=== PATIENT | female | born 1955 | race Caucasian/White ===

== ENCOUNTER 2017-01-05 22:40 | Observation (INO) | payer BC ==
[2017-01-05] MEDS ORDERED: Ondansetron INJ* 2 MG/ML VIAL IV ONE (23:36)
[2017-01-05] MEDS ORDERED: NS 0.9% 1000 ML* 1,000 ML IV ONE (23:36)
[2017-01-05] MEDS ORDERED: Morphine INJ* 4 MG/ML 1 ML SYRINGE IV ONE (23:47)
--- NOTE | 2017-01-06 00:06 | ED ---
Abdominal Pain/Female - HPI Summary HPI Summary: Pt here w/ upper ab pain. 5/10 at best, 10/10 at worst. Noticed some discomfort this morning after drinking a protein shake but didn't think much of it. Had a smaller than normal BM this morning but again, not noticeable. Went to work and was eating light throughout the day as well as drinking water - seemed to tolerate this well until dinner tonight. Ate spaghetti and meatballs at 18:30 and has had worsening of pain since. Comes in waves and ab gets hard at times. She vomited up her dinner which helped some and has significant nausea. Still passing gas below and denies watery BM. Denies fever, chills, chest pain, shortness of breath. H/o bowel obstruction and is worried this could be happening again although she states the pain is higher this time. Has had NIRMALA and appendectomy but still has gallbladder. Pt also has GERD. Takes zantac and Tums as needed. Denies routine use of NSAID' s. - History of Current Complaint Chief Complaint: EDAbdPain Stated Complaint: ABD PAIN Time Seen by Provider: 01/05/17 23:35 Hx Obtained From: Patient Pain Intensity: 5 Allergies/Adverse Reactions: Allergies Allergy/AdvReac Type Severity Reaction Status Date / Time Penicillins [PCN] Allergy Unknown childhood Verified 10/26/13 22:01 allergy PMH/Surg Hx/FS Hx/Imm Hx Previously Healthy: Yes GI History: Reports: Hx Gastroesophageal Reflux Disease, Hx Obstructive Bowel - PARTIAL SBO 2011, Other GI Disorders - GERD, HX PARTIAL SBO 2011 Denies: Hx Cirrhosis, Hx Diverticulosis, Hx Gall Bladder Disease, Hx Gastrointestinal Bleed, Hx Hiatal Hernia, Hx Irritable Bowel, Hx Ulcer - Surgical History Surgery Procedure, Year, and Place: OPEN APPENDECTOMY Infectious Disease History: No Infectious Disease History: Denies: Traveled Outside the [place] in Last 30 Days - Social History 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 Lives: With Family Hx Substance Use: No Substance Use Type: Reports: None Review of Systems Negative: Fever, Chills Negative: Chest Pain Negative: Shortness Of Breath Gastrointestinal: Other - see HPI Positive: no symptoms reported Musculoskeletal: Negative Skin: Negative Neurological: Negative Psychological: Normal All Other Systems Reviewed And Are Negative: Yes Physical Exam Triage Information Reviewed: Yes Vital Signs On Initial Exam: Initial Vitals Temp Pulse Resp BP Pulse Ox 98.0 F 81 20 143/73 100 01/05/17 22:41 01/05/17 22:41 01/05/17 22:41 01/05/17 22:41 01/05/17 22:41 Vital Signs Reviewed: Yes Appearance: Positive: Well-Appearing, Well-Nourished, Pain Distress - pt leaning forward in waiting room, holding upper abdomen; Skin: Positive: Warm, Dry Head/Face: Positive: Normal Head/Face Inspection Eyes: Positive: Normal, EOMI, Conjunctiva Clear - anicteric sclera ENT: Positive: Hearing grossly normal Respiratory/Lung Sounds: Positive: Clear to Auscultation, Breath Sounds Present Cardiovascular: Positive: Normal, RRR, S1, S2 Abdomen Description: Positive: Nontender, Distended - mild over upper abdomen, Guarding Bowel Sounds: Positive: Present, Hypoactive Pelvic Exam: Positive: other - deferred Musculoskeletal: Positive: Normal, Strength/ROM Intact Neurological: Positive: Normal, Sensory/Motor Intact, Alert, Oriented to Person Place, Time, CN Intact II-III Psychiatric: Positive: Normal - concerned Diagnostics - Vital Signs Vital Signs Temp Pulse Resp BP Pulse Ox 01/05/17 22:41 98.0 F 81 20 143/73 100 - Laboratory Result Diagrams: 01/06/17 00:05 01/06/17 00:05 Lab Statement: Any lab studies that have been ordered have been reviewed, and results considered in the medical decision making process. Re-Evaluation - Re-Evaluation First Eval Change: Improved - nausea improved; ab pain is 4/10 at baseline (was 5/10) and waves are still 10/10 but less frequent and don't last as long - would like more pain med Second Eval Change: Worse - pain worse, vomiting returned (witnessed) - ordered dilaudid and reglan Abdominal Pain Fem Course/Dx - Diagnoses Provider Diagnoses: Small bowel obstruction - Provider Notifications Discussed Care Of Patient With: Pt presents w/ painful hard upper abdomen and vomiting. Pain is coming in waves. H/o SBO and she is concerned about the same. CT reveals SBO w/o abscess or free air. Labs WNL. Spoke with Dr. Negro who advises NG tube, NPO, IVF and admission. He will see pt tomorrow. Pt aware of plan. Tiffany aware. Discharge - Discharge Plan Condition: Stable Disposition: ADMITTED TO [facility] Referrals: Kaci Rodríguez MD [Primary Care Provider] -
[2017-01-06 00:40] LABS: BUN/Creatinine Ratio 17.9 (8-20); C Reactive Protein 5.85 mg/L (< 5.00); Calcium 9.4 mg/dL (8.6-10.3); EGFR African American 77.2 (>60); Globulin 2.9 g/dL (2-4); Potassium 3.9 mmol/L (3.5-5.0); Total Bilirubin 0.6 mg/dL (0.2-1.0); Total Protein 6.9 g/dL (6.4-8.9)
[2017-01-06] MEDS ORDERED: Morphine INJ* 4 MG/ML 1 ML SYRINGE IV ONE (00:44)
[2017-01-06 00:56] LABS: Hematocrit 45 % (35-47); Mean Corpuscular HGB Conc 34 g/dl (31-36); Mean Corpuscular Hemoglobin 29 pg (27-31); Mean Corpuscular Volume 85 fL (80-97); Mean Platelet Volume 8 um3 (7.4-10.4); Red Blood Count 5.24 10^6/ul (4.0-5.4); Red Cell Distribution Width 14 % (10.5-15); White Blood Count 11.6 10^3/ul (3.5-10.8)
[2017-01-06] MEDS ORDERED: Iohexol 300* (CONTRAST) 10 ML SDV IV ONE (01:22)
[2017-01-06 01:36] LABS: Urine Bilirubin Negative (Negative); Urine Glucose Negative (Negative); Urine Nitrite Negative (Negative)
[2017-01-06] MEDS ORDERED: Metoclopramide IV* 5 MG/ML 2 ML VIAL IV ONE (01:40)
[2017-01-06] MEDS ORDERED: HYDROmorphone* 1 MG/ML 1 ML SYR IV SLOW PU ONE (01:40)
[2017-01-06] MEDS ORDERED: HYDROmorphone* 1 MG/ML 1 ML SYR IV SLOW PU PRN (03:51)
[2017-01-06] MEDS ORDERED: Pantoprazole IV* 40 MG IV SCH (04:00)
[2017-01-06] MEDS ORDERED: NS 0.9% 1000 ML* 1,000 ML IV SCH (04:00)
[2017-01-06] MEDS: Ondansetron INJ* 2 MG/ML VIAL IV PRN ×2 (04:21→07:19)
[2017-01-06] MEDS: Heparin VIAL(*) 5000 UNITS/ML VIAL (FIVE THOUSAND) SUBCUT SCH ×2 (06:19→13:46)
--- NOTE | 2017-01-06 07:59 | RAD ---
Indication: RIGHT upper quadrant pain, vomiting. Comparison: January 06, 2017 CT. Technique: RIGHT upper quadrant ultrasound. Report: Appropriate direction flow documented in the portal and hepatic veins. 20 cm cephalocaudal liver is increased in echogenicity consistent with fatty and duration. No focal hepatic lesions or biliary dilatation evident. Adequately distended gallbladder with normal 2.3 mm wall is without pathologic finding. Negative for sonographic Hua's sign. Upper normal 6.0 mm common bile duct. The pancreatic tail is largely obscured due to bowel gas with the visualized pancreas unremarkable. Negative for ascites. Unremarkable 10.9 cm RIGHT kidney. IMPRESSION: 1. Mild hepatomegaly and fatty infiltration of the liver. 2. Negative for gallbladder pathology.
--- NOTE | 2017-01-06 09:48 | RAD ---
Indication: Abdominal pain, history of bowel obstruction. Contrast: Administered 117.0 ml of OMNIPAQUE 300 mg/ml CT of the abdomen and pelvis was performed after IV contrast administration. Oral contrast was also administered. The lung bases demonstrate no pleural fluid, nodules or masses. Heart is of normal size without evidence of pericardial effusion. The liver is normal in size. It is diffusely decreased in density consistent with hepatic steatosis. No focal lesions or intrahepatic duct dilatation is noted. The gallbladder demonstrates no calcified gallstones. No pericholecystic fluid or wall thickening is identified. The spleen is normal in size. No adrenal lesions are noted. The kidneys demonstrates no mass or pancreatic duct dilatation. Aorta and inferior vena cava are unremarkable. There are dilated loops of small bowel. There is a zone of transition in the right pelvis in the mid to distal ileum. There is focal wall thickening noted. This is just adjacent and to the right of the dome of the urinary bladder. Focal wall thickening is noted and the possibility of a neoplastic process should be considered. I cannot totally exclude an apple core type lesion. There is some fluid in the colon. No retroperitoneal or pelvic lymphadenopathy is noted. No hernias are identified. IMPRESSION: Findings consistent with small bowel obstruction. There is focal wall thickening of the mid to distal ileum in the right lower quadrant just above the URINARY bladder. I cannot totally exclude a neoplastic process, although inflammatory bowel disease should also be considered. Hepatic steatosis is noted.
--- NOTE | 2017-01-06 10:43 | PN ---
Progress Note - Progress Note SOAP: Subjective: Doing much better this am. Denies pin, N/V. NG already d/c'ed and patient started on clear liquids, tolerating it well. Objective: VSS, afebrile. Abdomen soft, NT, ND Assessment: Resolving intermittent SBO Plan: Ambulate, continue liquid diet, possibly d/c later today.
[2017-01-06 15:16] VITALS: BP 113/69
--- NOTE | 2017-01-06 17:38 | HP ---
HISTORY AND PHYSICAL: DATE OF ADMISSION: 01/06/17 CHIEF COMPLAINT: Abdominal pain. HISTORY OF PRESENT ILLNESS: The patient is a 61-year-old woman who presents to [facility] with chief complaint of abdominal pain. She said the morning it happened, she had a protein shake and was feeling fine, but did not have much to eat rest of the day except the piece of toast. Then at dinner, she had macaroni and meatballs and shortly thereafter she started developing significant abdominal pain. It increased and increased until it was 10/10 severity and she could not take it any longer. She also developed significant nausea and vomiting. She came to the ER and was found to have small bowel obstruction. PAST MEDICAL HISTORY: The patient has a past medical history significant for GERD, NIRMALA-BSO, appendectomy, tonsillectomy, adenoidectomy. MEDICATIONS: Include Zantac 150 mg daily. ALLERGIES: She has an allergy/adverse reaction to PENICILLIN. FAMILY HISTORY: Mother at 63 of cancer of unknown etiology. Father is alive at 84 and has hypertension, hyperlipidemia. SOCIAL HISTORY: No tobacco. Social alcohol. No recreational drug use. 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 She is and her , Andi Guzman, is her healthcare proxy. REVIEW OF SYSTEMS: A 14-point review of systems was completed with the patient. All pertinent positives and negatives are in the history of present illness, otherwise negative. PHYSICAL EXAMINATION GENERAL: A pleasant woman, lying in bed, in no acute distress. VITAL SIGNS: Temperature 97.6 degrees, heart rate 93 beats per minute, respiratory rate 12 breaths per minute, pulse ox 97%, blood pressure 129/77. HEENT: Normocephalic, atraumatic. Pupils equal, round, and reactive to light. Moist mucous membranes. NECK: Supple. No JVD, bruits, palpable thyroid, or lymphadenopathy. CHEST: Clear to auscultation and percussion bilaterally. CARDIOVASCULAR: S1, S2 appreciated. Regular rate and rhythm. ABDOMEN: She has got positive bowel sounds. It is distended, it is tender, but no rebound, no guarding, no rigidity. EXTREMITIES: No cyanosis, clubbing, or edema. +2 peripheral pulses bilaterally. NEURO: Alert and oriented x3. Moves all extremities. SKIN: No rashes or abnormalities. LABORATORY DATA/DIAGNOSTIC STUDIES: White count 11.6, hemoglobin 15.0, hematocrit 45, platelets 185. Sodium 135, potassium 3.9, chloride 104, CO2 27, BUN 17, creatinine is 0.95, glucose level 114. CRP 5.85. Urinalysis is unremarkable. Ultrasound of the gallbladder shows enlarged fatty liver. CT of the abdomen and pelvis shows small bowel obstruction with distal ileal transition point without abscess or free air, fatty liver. ASSESSMENT AND PLAN: 1. Small bowel obstruction. Make patient NPO. Normal saline 100 cc an hour. Zofran p.r.n. for nausea. Dilaudid p.r.n. for pain. Surgery to see this morning. 2. Gastroesophageal reflux disease: Place patient on IV Protonix. 3. FEN. NPO, again with IV fluids. 4. DVT prophylaxis. Heparin subcu. 5. The patient is a full code. TIME SPENT: Over 75 minutes was spent on this H and P, more than 40 minutes of which was spent in direct [id number] contact with the patient on evaluation, physical exam, counseling, and coordination of care. CC: Kaci Rodríguez MD* [id number]/[facility] #: [id number] MARIA ISABEL
--- NOTE | 2017-01-06 18:12 | CONS ---
CONSULTATION REPORT: DATE OF CONSULT: 01/06/17 REFERRING PROVIDER: Dr. James Allen. The patient seen here on short-stay unit, bed 332. REASON FOR CONSULT: Abdominal pain with concern for a small bowel obstruction. HISTORY OF PRESENT ILLNESS: Ms. 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 She has had a normal bowel movement yesterday morning, which was not unusual and in addition, she had passed some flatus. At about 9 o'clock last night, the pain became unbearable. She presented to the emergency room and was noted to have crampy abdominal discomfort and distention. She was afebrile with normal vital signs. She noted to have tenderness throughout her abdomen without rebound, guarding or peritoneal signs, however. Nasogastric tube was inserted last night. Laboratory values include a white blood cell count of 11,000 with no bandemia. Electrolytes, BUN, creatinine and lactic acid were normal. She has a C- reactive protein of 5.85. Lipase was 33. She underwent a CT scan of the abdomen and pelvis. I did review the study. This was read as proximal dilated small bowel with what appears to be some distally smaller caliber terminal ileum. The patient has undergone an appendectomy in the past. There was no other acute findings and this was felt to represent a small bowel obstruction. Nasogastric tube was inserted in the emergency room. She was admitted to hospitalist service and surgical consultation was obtained. PAST MEDICAL HISTORY: Gastroesophageal reflux disease. PAST SURGICAL HISTORY: 1. Open appendectomy. 2. Laparoscopic hysterectomy. ALLERGIES: She is allergic to PENICILLIN. MEDICATIONS: Zantac p.r.n. SOCIAL HISTORY: She does not smoke or drink. She is with grown children. 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 REVIEW OF SYSTEMS: Cerebrovascular: No dizziness or visual disturbances. Cardiovascular: No chest pain or shortness of breath. Pulmonary: No wheezing or hemoptysis. GI: As per above. She has had an admission to the [facility] in 2011, for what it was described as a small bowel obstruction. We do not have these records. In addition, in 2014, she was seen here in the emergency room with similar symptoms , all of these resolved in the ER and she was discharged to home without admission. She also had some mildly dilated small bowel with some less distended distal bowel with perhaps some thickening in the terminal ileal area. She has not had problems since. She states she underwent a colonoscopy in 2014 at the [employer] [facility], which was unremarkable but they did not feel that the terminal ileum was intubated. PHYSICAL EXAM: Temperature 97.6, pulse 93, blood pressure 129/77, respirations 12. In general, she is a well-developed, overweight female, normal attention to grooming. She is quite alert and conversant, appears to be in no apparent distress. She is sitting up in bed and moves around well. Lungs were clear to auscultation with normal respiratory effort. Heart was regular rate and rhythm without murmurs, rubs, or gallops. Abdomen is soft, nondistended. She had normoactive bowel sounds throughout. They were somewhat hyperactive but not high pitched or tinkling. She has a well-healed right lower quadrant oblique incision as well as some laparoscopic incision in lower abdomen. She has no tenderness, rebound, guarding or mass noted. Psychiatric: She is awake, alert , and oriented x3. She has normal judgment and insight. IMPRESSION: Abdominal pain of a crampy nature with severe nausea and vomiting. It subsequently had resolved. She has had no diarrhea. There has been no fever. Laboratory workup as above. She had similar symptoms in 2014, was seen here in the emergency room but discharged without needing admission as her symptoms improved. A CT scan today was reviewed from the study done severe years ago and I am not convinced that there is a clear transition point but there is some relatively collapsed bowel distally that represents a small bowel obstruction. At this point, I am not convinced that she has had a small bowel obstruction, an uncertain etiology but she seems to be doing better. A nasogastric tube has not really drained since it has been inserted and she is feeling much better, which I suspect would be unusual for an adhesive small bowel obstruction to have such a quick resolution. PLAN: 1. Observation with admission. 2. Continue NG tube for the next several hours. If this has not had drained any further and she feels well, we will discontinue this and start liquids as long as she continues to do well with consideration of possible discharge later today if she tolerates this. Thank you very much for this consultation. CC: Kaci Rodríguez MD, [facility] in [place]; [facility]* [id number]/[facility] #: [id number] MTDD
--- NOTE | 2017-01-07 12:33 | DS ---
DISCHARGE SUMMARY: DATE OF ADMISSION: 01/06/17 DATE OF DISCHARGE: 01/06/17 PRIMARY CARE PROVIDER: Dr. Rodríguez. DISCHARGE DIAGNOSIS: Mild episode of small bowel obstruction. MEDICATIONS: None. HOSPITAL COURSE: Ms. Guzman is a 61-year-old lady with a prior episode of SBO, who presents to the emergency room with complaints of abdominal pain and found to have CT findings suggesting another episode. She had a NG tube placed that did not drain a lot and she had significant symptomatic improvement. She was able to tolerate a liquid diet. She was seen in consultation by General Surgery and it was felt that her case was mild and she was already improving, so the plan was to advance her diet and to discharge her home today. She has tolerated liquids well and she has had an episode of SBO in the past, so she is aware of the need for low-residue diet. She is medically stable for discharge at this time. STATUS WHILE IN THE HOSPITAL: Observation. DIET: Full liquid diet for 2 days, then low-residue diet for 2 weeks. DISPOSITION: To home. If you need more information, please feel free to call me at [phone] or please obtain the full medical records. Please keep in mind this is a summarized version of this patient's hospital stay. CC: Dr. Rodríguez * [id number]/[facility] #: [id number] MARIA ISABEL
== END 2017-01-06 16:05 | disposition home or self-care (01) ==
LOC: ED 22:40 → INTOOBSV 01-06 04:02 → SSU 01-06 04:02 → UNDODISIN 01-06 16:05
PROVIDERS: ADMIT Internal Medicine; ATTEND Internal Medicine
DX: K56.60 Unspecified intestinal obstruction (principal); K21.9 Gastro-esophageal reflux disease without esophagitis; R16.2 Hepatomegaly with splenomegaly, not elsewhere classified; K76.0 Fatty (change of) liver, not elsewhere classified; Z88.0 Allergy status to penicillin
CPT/HCPCS: 36415; 74177; 76705; 80053; 81003; 83605; 83690; 85025; 86140; 96361; 96372; 96374; 96375; 96376; 99285; G0378; J1170; J1644; J2270; J2405; Q9967

== ENCOUNTER 2017-01-07 03:34 | Inpatient (IN) | payer BC ==
[2017-01-07] MEDS ORDERED: Ondansetron INJ* 2 MG/ML VIAL IV ONE ×2 (03:50→07:26)
[2017-01-07] MEDS ORDERED: Morphine INJ* 2 MG/ML 1 ML SYRINGE IV ONE (03:50)
[2017-01-07] MEDS ORDERED: NS 0.9% 1000 ML* 1,000 ML IV ONE (03:50)
[2017-01-07 04:40] LABS: Hematocrit 46 % (35-47); Hemoglobin 15.4 g/dl (12.0-16.0); Mean Corpuscular HGB Conc 33 g/dl (31-36); Mean Corpuscular Hemoglobin 28 pg (27-31); Mean Corpuscular Volume 85 fL (80-97); Mean Platelet Volume 8 um3 (7.4-10.4); Red Blood Count 5.48 10^6/ul (4.0-5.4); Red Cell Distribution Width 14 % (10.5-15); White Blood Count 9.1 10^3/ul (3.5-10.8)
[2017-01-07 04:55] LABS: Albumin 3.9 g/dL (3.2-5.2); BUN/Creatinine Ratio 14.3 (8-20); C Reactive Protein 29.03 mg/L (< 5.00); Calcium 8.8 mg/dL (8.6-10.3); EGFR African American 98.3 (>60); EGFR Non-African American 76.5 (>60); Globulin 2.7 g/dL (2-4); Magnesium 2.1 mg/dL (1.9-2.7); Potassium 3.6 mmol/L (3.5-5.0); Total Bilirubin 0.9 mg/dL (0.2-1.0); Total Protein 6.6 g/dL (6.4-8.9)
--- NOTE | 2017-01-07 06:27 | ED ---
Bennie Justin Salem, scribed for West Banda MD on 01/07/17 at 0357 . Abdominal Pain/Female - HPI Summary HPI Summary: Patient is a 61 y/o female who presents to the ED with constant 7/10 abd pain that waxes and wanes. She was in the ED yesterday with upper abd pain, vomiting , and nausea, but denied SOB, CP, chills, or fever. She reports SOB as a new sx since yesterday. Pt has a hx of bowel obstruction and of SOB. She reports no other sx. - History of Current Complaint Chief Complaint: EDAbdPain Stated Complaint: POSS SBO Time Seen by Provider: 01/07/17 03:37 Hx Obtained From: Patient, Family/Infrastructure Tech, Medical Records Onset/Duration: Gradual Onset, Lasting Hours Timing: Constant Severity Initially: Moderate Severity Currently: Moderate Pain Intensity: 7 Pain Scale Used: 0-10 Numeric Radiates: No Aggravating Factor(s): Nothing Alleviating Factor(s): Nothing Associated Signs and Symptoms: Positive: Other: - SOB. Allergies/Adverse Reactions: Allergies Allergy/AdvReac Type Severity Reaction Status Date / Time Penicillins [PCN] Allergy Unknown childhood Verified 01/07/17 03:44 allergy PMH/Surg Hx/FS Hx/Imm Hx Endocrine/Hematology History: Denies: Hx Diabetes Cardiovascular History: Denies: Hx Hypertension GI History: Reports: Hx Gastroesophageal Reflux Disease, Hx Obstructive Bowel - PARTIAL SBO 2011, Other GI Disorders - GERD, HX PARTIAL SBO 2011 Denies: Hx Cirrhosis, Hx Diverticulosis, Hx Gall Bladder Disease, Hx Gastrointestinal Bleed, Hx Hiatal Hernia, Hx Irritable Bowel, Hx Ulcer History: Denies: Hx Renal Disease Musculoskeletal History: Reports: Other Musculoskeletal History - FX left humerus age 8 Sensory History: Reports: Hx Contacts or Glasses Denies: Hx Hearing Aid Opthamlomology History: Reports: Hx Contacts or Glasses - Surgical History Surgery Procedure, Year, and Place: OPEN APPENDECTOMY. histerectomy 2015. tonsils and adnoids age 13 Infectious Disease History: No Infectious Disease History: Denies: Traveled Outside the US in Last 30 Days - Family History Known Family History: Positive: Hypertension - Social History Alcohol Use: Occasionally Alcohol Amount: 1-2 glasses of wine a month Hx Substance Use: No Substance Use Type: Reports: None Hx Tobacco Use: No Smoking Status (MU): Never Smoked Tobacco Review of Systems Negative: Fever Positive: Shortness Of Breath Positive: Abdominal Pain All Other Systems Reviewed And Are Negative: Yes Physical Exam Triage Information Reviewed: Yes Vital Signs On Initial Exam: Initial Vitals Temp Pulse Resp BP Pulse Ox 97.8 F 97 18 109/91 95 01/07/17 03:42 01/07/17 03:42 01/07/17 03:42 01/07/17 03:42 01/07/17 03:42 Vital Signs Reviewed: Yes Appearance: Positive: Well-Appearing, Pain Distress - mildly uncomfortable Skin: Positive: Warm Head/Face: Positive: Normal Head/Face Inspection Eyes: Positive: JULIANA ENT: Positive: Hearing grossly normal Neck: Positive: Supple Respiratory/Lung Sounds: Positive: Breath Sounds Present Cardiovascular: Positive: RRR Abdomen Description: Positive: Soft, Other: - mild diffuse tenderness Bowel Sounds: Positive: Hypoactive Musculoskeletal: Positive: Strength/ROM Intact Neurological: Positive: Sensory/Motor Intact, Alert, Oriented to Person Place, Time - Corry Coma Scale Coma Scale Total: 15 Diagnostics - Vital Signs Vital Signs Temp Pulse Resp BP Pulse Ox 01/07/17 03:42 97.8 F 97 18 109/91 95 - Laboratory Lab Results: Lab Results 01/07/17 01/07/17 01/07/17 Range/Units 04:05 04:05 04:05 WBC 9.1 (3.5-10.8) 10^3/ul RBC 5.48 H (4.0-5.4) 10^6/ul Hgb 15.4 (12.0-16.0) g/dl Hct 46 (35-47) % MCV 85 (80-97) fL MCH 28 (27-31) pg MCHC 33 (31-36) g/dl RDW 14 (10.5-15) % Plt Count 189 (150-450) 10^3/ul MPV 8 (7.4-10.4) um3 Neut % (Auto) 73.1 (38-83) % Lymph % (Auto) 20.6 L (25-47) % [place] % (Auto) 5.3 (1-9) % Eos % (Auto) 0.7 (0-6) % Baso % (Auto) 0.3 (0-2) % Absolute Neuts (auto) 6.7 (1.5-7.7) 10^3/ul Absolute Lymphs (auto) 1.9 (1.0-4.8) 10^3/ul Absolute Monos (auto) 0.5 (0-0.8) 10^3/ul Absolute Eos (auto) 0.1 (0-0.6) 10^3/ul Absolute Basos (auto) 0 (0-0.2) 10^3/ul Absolute Nucleated RBC 0 10^3/ul Nucleated RBC % 0 Sodium 138 (133-145) mmol/L Potassium 3.6 (3.5-5.0) mmol/L Chloride 106 (101-111) mmol/L Carbon Dioxide 26 (22-32) mmol/L Anion Gap 6 (2-11) mmol/L BUN 11 (6-24) mg/dL Creatinine 0.77 (0.51-0.95) mg/dL Est GFR ( Amer) 98.3 (>60) Est GFR (Non-Af Amer) 76.5 (>60) BUN/Creatinine Ratio 14.3 (8-20) Glucose 118 H (70-100) mg/dL Lactic Acid 1.2 (0.5-2.0) mmol/L Calcium 8.8 (8.6-10.3) mg/dL Magnesium 2.1 (1.9-2.7) mg/dL Total Bilirubin 0.90 (0.2-1.0) mg/dL AST 17 (13-39) U/L ALT 23 (7-52) U/L Alkaline Phosphatase 62 (34-104) U/L C-Reactive Protein 29.03 H (< 5.00) mg/L Total Protein 6.6 (6.4-8.9) g/dL Albumin 3.9 (3.2-5.2) g/dL Globulin 2.7 (2-4) g/dL Albumin/Globulin Ratio 1.4 (1-3) Lipase 22 (11.0-82.0) U/L Result Diagrams: 01/07/17 04:05 01/07/17 04:05 Lab Statement: Any lab studies that have been ordered have been reviewed, and results considered in the medical decision making process. - Radiology ABD (COMPLETE) Radiology Interpretation Completed By: ED Physician - Dilated small bowel. Re-Evaluation - Re-Evaluation First Eval Re-Evaluation Time: 03:45 Comment: call to dr guadalupe, rec repeat labs, abd xray Second Eval Re-Evaluation Time: 06:26 - pt attempted to take fluids, increased nausea and pain, call to dr guadalupe, case d/w surgical pa who will contact dr guadalupe Abdominal Pain Fem Course/Dx - Course Course Of Treatment: 61 y/o female presents with abd pain. She was in the ED yesterday, but reports SOB as a new sx since. She received Morphine, IV fluids, Ondansetron in the ED. X-Ray reveals dilated small bowel. Discussed with Dr. Hinton. - Diagnoses Provider Diagnoses: SBO (small bowel obstruction) - Provider Notifications Discussed Care Of Patient With: Dr. Hinton (surgery) @ 0343. Discussed pts case. Discharge - Discharge Plan Condition: Stable Disposition: OTHER Discharge Disposition Comment: Signed out at shift change. The documentation as recorded by the Bennie rubio Salem accurately reflects the service I personally performed and the decisions made by me, West Banda MD.
[2017-01-07] MEDS ORDERED: Morphine INJ* 4 MG/ML 1 ML SYRINGE IV ONE (07:11)
[2017-01-07] MEDS ORDERED: Morphine INJ* 4 MG/ML 1 ML SYRINGE ONE (07:13)
--- NOTE | 2017-01-07 08:10 | RAD ---
INDICATION: Abdominal pain in a patient who recently had small bowel obstruction. COMPARISON: CT January 06, 2017 TECHNIQUE: Supine and upright views of the abdomen were obtained. FINDINGS: At the midline upper abdomen there are air-filled dilated loops of small bowel measuring up to 3.8 cm in diameter. There is a paucity of gas and stool seen overlying the colon although there is a small amount of gas and stool overlying the rectum. There is no radiographic evidence of free peritoneal air. No grossly abnormal or pathologic appearing calcifications are noted. Visualized bones are within normal limits for the patient's age. IMPRESSION: Dilated loops of air-filled proximal small bowel measuring up to 3.8 cm in diameter appears slightly larger when compared to the January 06, 2017 CT examination.
--- NOTE | 2017-01-07 08:41 | ED ---
Selvin Justin Billy, scribed for Ori Felipe MD on 01/07/17 at 0737 . Progress - Progress Note Progress Note: Patient signed out by Dr. Banda at shift change. This is a 61 year-old female coming to [facility] for evaluation of two days of abdominal pain, nausea, and vomiting. Patient was given Zofran and morphine by Dr. Banda for nausea and pain in the ED, and states that her vomiting has improved by this time, but she still complains of nausea. She was admitted to Dr. Allen (hospitalist) and seen by Dr. Negro (surgery) yesterday. NG tube was placed. She was ultimately discharged, but returned to the ED early this morning. - EKG/XRAY/CT XRAY: abdomen - Dilated loops of air-filled proximal small bowel measuring up to 3.8 cm in diameter appears slightly larger when compared to the January 06, 2017 CT examination. Physical Exam - Summary Physical Exam Summary: The patient is well-nourished in no acute distress and in no acute pain. The skin is warm and dry and skin color reflects adequate perfusion. HEENT: The head is normocephalic and atraumatic. The pupils are equal and reactive. The conjunctivae are clear and without drainage. Nares are patent and without drainage. Mouth reveals moist mucous membranes and the throat is without erythema and exudate. The external ears are intact. The ear canals are patent and without drainage. The tympanic membranes are intact. Neck is supple with full range of motion and non-tender. There are no carotid bruits. There is no neck vein distension. Respiratory: Chest is non-tender. Lungs are clear to auscultation and breath sounds are symmetrical and equal. Cardiovascular: Heart is regular rate and rhythm. There is no murmur or rub auscultated. There is no peripheral edema and pulses are symmetrical and equal. Abdomen: The abdomen is soft and diffusely tender to palpation without rebound or guarding. There are hyperactive bowel sounds, especially in the left-side of the abdomen. There is no organomegaly palpated. Musculoskeletal: There is no back pain noted. Extremities are non-tender with full range of motion. There is good capillary refill. There is no peripheral edema or calf tenderness elicited. Neurological: Patient is alert and oriented to person, place and time. The patient has symmetrical motor strength in all four extremities. Cranial nerves are grossly intact. Deep tendon reflexes are symmetrical and equal in all four extremities. Psychiatric: The patient has an appropriate affect and does not exhibit any anxiety or depression. Triage Information Reviewed: Yes Vital Signs On Initial Exam: Vital Signs: Temp Pulse Resp BP Pulse Ox 97.8 F 94 18 116/72 95 01/07/17 03:42 01/07/17 07:00 01/07/17 07:18 01/07/17 06:30 01/07/17 07:00 Vital Signs Reviewed: Yes - Morris Coma Scale Coma Scale Total: 15 Re-Evaluation - Re-Evaluation First Eval Re-Evaluation Time: 08:22 Comment: Complains of diffuse abdominal pain 04/13. Course/Dx - Course Course Of Treatment: Patient signed out by Dr. Banda at shift change. This is a 61 year-old female coming to [facility] for evaluation of two days of abdominal pain, nausea, and vomiting. Patient was given Zofran and morphine by Dr. Banda for nausea and pain in the ED, and states that her vomiting has improved by this time, but she still complains of nausea. She was admitted to Dr. Allen (hospitalist) and seen by Dr. Negro (surgery) yesterday. NG tube was placed. She was ultimately discharged, but returned to the ED early this morning. Dr. Negro came and examined the patient, and after his assessment, he decided to admit the patient to his services for further workup and management. He requested for us to place an order for CT abd/pel with PO and IV contrast. He will follow-up on the results and further management for the patient. She is hemodynamically stable, A&Ox3. She continues to have pain on re- evaluation, 04/13, therefore she was given 4mg morphine and Zofran. - Diagnoses Provider Diagnoses: Abdominal pain, Nausea - Provider Notifications Discussed Care Of Patient With: Dr. Hinton (surgery) @ 4806: recommends for the patient to be admitted to hospitalist services as she continues to be symptomatic. Dr. Strauss (hospitalist) @ 0635: says should be admitted to Dr. Negro (surgery), and that she will speak with him and call us back. Dr. Negro (surgery) @ [phone]: after evaluating the patient in the ED, he accepts her for admission to his services. Discharge - Discharge Plan Condition: Stable Disposition: ADMITTED TO [facility] Referrals: Kaci Rodríguez MD [Primary Care Provider] - The documentation as recorded by the Selvin rubio Billy accurately reflects the service I personally performed and the decisions made by me, Ori Felipe MD.
[2017-01-07] MEDS: Pantoprazole IV* 40 MG IV SCH (09:59)
[2017-01-07] MEDS: NS 0.9% 1000 ML* 1,000 ML IV SCH ×2 (09:59→19:00)
[2017-01-07] MEDS: HYDROmorphone* 1 MG/ML 1 ML SYR IV PRN ×3 (10:32→18:14)
--- NOTE | 2017-01-07 10:59 | HP ---
CC: [facility]; [facility] in [place] on [facility] HISTORY AND PHYSICAL: DATE OF SERVICE AND DICTATION: 01/07/17 REASON FOR CONSULTATION: Severe crampy abdominal pain with nausea. HISTORY OF PRESENT ILLNESS: Ms. 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 At that time, she had a normal laboratory workup and a CT scan that showed proximally distended small bowel with some relatively collapsed distal bowel concerning for small bowel obstruction. She has undergone an open appendectomy as well as a laparoscopic hysterectomy in the past and it was felt that she had a small bowel obstruction. She was admitted to the hospitalist service with surgical consultation and over the next 12 hours, her pain resolved and nasogastric tube really drained nothing and she started passing flatus and her diet was advanced and she was discharged home pain free tolerating liquids. After she had gotten home, she had 1 firm bowel movement followed by multiple loose bowel movements and was taking liquids over the course of afternoon and evening; however, last evening once again she developed abdominal discomfort with nausea, which progressed in severity to the point where she needed to present back to the emergency room early this morning. She has had no vomiting. There has been no shakes or chills, but she did not have any further bowel movements or flatus. She received some morphine for abdominal discomfort. While in the emergency room, she was noted to be afebrile with a heart rate of about 90. Her white blood cell count 9.1 with a normal hemoglobin. Electrolytes; BUN and creatinine as well as lactic acid were normal. She did have a C-reactive protein of 29. Lipase was normal. Repeat abdominal x-rays, which I did review, these images show some several too apparent dilated loops of small bowel, but no other gas pattern. There is no residual contrast from the previous CT scan done 48 hours ago. With her return to the emergency room with recurrence of abdominal pain, she is now to be admitted to the surgical service for further evaluation and care. PAST MEDICAL HISTORY: Gastroesophageal reflux disease. PAST SURGICAL HISTORY: 1. Open appendectomy. 2. Laparoscopic hysterectomy. 3. Tonsillectomy and adenoidectomy. MEDICATIONS: Zantac 150 mg daily. ALLERGIES: PENICILLIN. SOCIAL HISTORY: She does not use tobacco. She drinks alcohol on a rare social basis. No recreational drug abuse. 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 She is . She has grown children. Her is her health care proxy. REVIEW OF SYSTEMS: As per above. Cerebrovascular: No dizziness or visual disturbance. Cardiovascular: No chest pain or shortness of breath. Pulmonary : No wheezing or hemoptysis. GI: As per above. Please see recent history and physical. She has had symptoms similar to this in 2013 and 2011, which responded quickly to nonoperative management and has not had further workup. She has undergone a colonoscopy that has been normal in 2015. : No urgency or hematuria. PHYSICAL EXAMINATION GENERAL: She is a well-developed slight overweight female, normal attention to grooming. She is awake, alert, conversive, and very pleasant. VITAL SIGNS: Temperature 99.4, pulse 83, and blood pressure 97/63. HEENT: Sclerae is anicteric. Trachea was midline. Mucosa is dry. LUNGS: Clear to auscultation with normal respiratory effort. HEART: Regular rate and rhythm without murmurs, rubs, or gallops. ABDOMEN: Soft and nondistended. She had bowel sounds that are present, but no high pitched or tinkling. She does have generalized tenderness without peritoneal irritation. She has a well-healed right lower quadrant transverse incision as well as several laparoscopic port sites in the lower abdomen including the umbilicus. No hernias noted. EXTREMITIES: Showed no cyanosis or edema. IMPRESSION: Abdominal pain with nausea. She said she returned to the emergency room after presenting with similar symptoms 48 hours prior to this presentation, which responded to nonoperative management. The working diagnosis has been a partial small bowel obstruction as per the CT scan and her clinical history. She seems to have recurrence/incomplete resolution and has presented back to the emergency room. PLAN: 1. She will be admitted to the surgical service of the short-stay unit. 2. We will keep her n.p.o. She does not have any vomiting or significant nausea, we will hold off on her nasogastric tube for now. 3. IV fluids will be started. 4. I discussed the repeat abdominal x-rays with her. This certainly appears to be a small bowel obstruction most likely to adhesive disease. I discussed options of continued nonoperative management with nasogastric tube insertion and continued observation; however, I am concerned that she has been having some recurrent abdominal pain on exam today, certainly it is more tender than it was yesterday despite having a normal white blood cell count and lactic acid with no fever. Her pain is quite severe. She is now 48 hours into management without improvement and seems to have worsening discomfort. I discussed a diagnostic laparoscopy with possible laparotomy with her and I do feel that this is indicated. However, she is somewhat concerned about proceeding in this direction and after further discussion I think it is certainly reasonable idea to repeat the CT scan with oral and IV contrast this morning to gain more information and to assist us with a decision regarding laparoscopy, which would be not done until later today when there is operating room availability. We will proceed with a CT scan of the abdomen and pelvis. Laparoscopy and laparotomy were both discussed with the patient. The risks are but not limited to bleeding, infection, intra-abdominal abscess formation, injury to peritoneal and retroperitoneal structures, the possibility of bowel resection, possible ostomy, possible abscess formation, the risks of general anesthesia, postoperative deep vein thrombosis, recovery time, and hospital stay were all explained. We will discuss further once we have the CT scan results and more definitive plan regarding laparoscopy at that time. [id number]/[facility] #: [id number] MARIA ISABEL
[2017-01-07] MEDS ORDERED: Iohexol 300* (CONTRAST) 10 ML SDV IV ONE (12:02)
--- NOTE | 2017-01-07 13:08 | RAD ---
INDICATION: Nausea and vomiting, history of small bowel obstruction. COMPARISON: Comparison is made with a prior CT of the abdomen and pelvis from January 06, 2017. Correlation is also made with a prior CT of the abdomen and pelvis from October 27, 2013. TECHNIQUE: A CT scan of the abdomen and pelvis was performed with intravenous and oral contrast following intravenous injection of 117 ml of Omnipaque 300 nonionic contrast. Contiguous axial sections were obtained from the lung bases through the symphysis pubis. Images were reconstructed in the coronal and sagittal planes. FINDINGS: There is mild dependent bilateral lower lobe subsegmental atelectasis. No pleural effusion is present. The liver and spleen are normal in size. The liver is decreased in attenuation consistent with fatty infiltration contrast is seen within the gallbladder from the prior recent CT study. The pancreas appears to be within normal limits. The kidneys and adrenal glands are normal in size. No hydronephrosis is seen. There is a small subcentimeter cyst in the left kidney. The aorta is normal in caliber with mild calcific plaque present. The celiac, superior and inferior mesenteric arteries appear patent without evidence for hemodynamically significant stenosis. No significant enlarged retroperitoneal lymph nodes are seen. The stomach is nondistended. There is moderate distention of the mid and distal small bowel which is progressed slightly from the prior exam. There is significant circumferential thickening of the distal small bowel which is progressed significantly from the prior study. There are at least 2 focal areas of narrowing within the area of thickened small bowel. There is also fluid within the adjacent mesentery and a small amount of free intraperitoneal fluid in the pelvis. The patient is status post appendectomy by history. There is mild to moderate sigmoid diverticulosis without evidence for diverticulitis. The patient is status post hysterectomy. No free intraperitoneal air is seen. No significant focal osseous abnormality is seen. The results of this examination were discussed with Dr. Negro. IMPRESSION: MODERATE GRADE PARTIAL DISTAL SMALL BOWEL OBSTRUCTION. THERE IS NEW PROMINENT CIRCUMFERENTIAL WALL THICKENING OF A LONG SEGMENT OF THE DISTAL ILEUM JUST PROXIMAL TO THE TERMINAL ILEUM AND NEW FREE INTRAPERITONEAL FLUID. THE WALL THICKENING IS NONSPECIFIC ALTHOUGH WOULD RAISE THE POSSIBILITY OF ISCHEMIA. RECOMMEND CLINICAL CORRELATION. ALSO CONSIDER INFLAMMATORY BOWEL DISEASE OR INFECTIOUS ENTERITIS.
[2017-01-07] MEDS: Ciprofloxacin 400MG IVPREMIX(* 400 MG/200 ML BAG IVPB SCH (13:21)
[2017-01-07] MEDS: Ondansetron INJ* 2 MG/ML VIAL IV PRN ×2 (14:01→18:22)
[2017-01-07] MEDS: metroNIDAZOLE IV 500 MG/100ML* 500 MG/100 ML BAG IVPB SCH ×2 (14:44→22:22)
[2017-01-07] MEDS: NS 0.9% w/ 40 Meq KCL 1000 ML* 1,000 ML IV SCH (20:25)
[2017-01-08] MEDS: Ciprofloxacin 400MG IVPREMIX(* 400 MG/200 ML BAG IVPB SCH ×2 (01:05→12:40)
--- NOTE | 2017-01-08 01:07 | CONS ---
CONSULTATION NOTE: DATE OF CONSULT: 01/07/17 REASON FOR CONSULTATION: Recurrent small bowel obstruction. NARRATIVE: Ms. Guzman is a 61-year-old woman who initially presented 2 days ago with sudden onset of abdominal pain, nausea, and vomiting. She was evaluated in the emergency room where she had a CT scan showing a distended proximal small bowel with a collapsed distal small bowel consistent with small bowel obstruction. She was admitted overnight, an NG tube was placed and by the following morning she fell better, tolerated liquid diet, and was discharged home. She advanced her diet slowly and did relatively well until overnight prior to this admission when the pain recurred. She then experienced recurrent nausea and vomiting. She actually then had a normal bowel movement and then 2 or 3 loose watery bowel movements. Due to the ongoing pain, she re-presented to the emergency room. She was afebrile at the time. She was describing some abdominal pain and had a repeat CAT scan, which I did review showing again evidence of a partial small bowel obstruction, but finding of circumferential thickening of the terminal ileum region. She has now been admitted and given pain control. The patient states that she has had 2 prior episodes of obstruction, she believes in 2011 and 2013 that required short hospital stays. She never required surgery for them. She does have a surgical history which included an open appendectomy about 30 years ago. She also had a laparoscopic hysterectomy about 2 years ago. Prior to the onset of these symptoms, she was feeling well. PAST MEDICAL HISTORY: GERD. MEDICATIONS: Zantac. FAMILY HISTORY: Negative for IBD, celiac disease or malignancies of the GI tract. REVIEW OF SYSTEMS: She denies any recent weight loss, fevers, skin rashes, oral lesions, GI bleeding. She states that she had a colonoscopy about 2 to 3 years ago and reports no abnormality was detected. PHYSICAL EXAM: She is an obese woman currently describing no significant pain after receiving Dilaudid. She is in no acute distress. Temperature is 98.2, blood pressure is 109/58, heart rate is 68 and regular. She does not appear pale. She is euvolemic. Lungs are clear. Cardiac exam reveals a regular rhythm without murmur. Abdomen is soft with tenderness in the periumbilical region. There is perhaps some mild distention and hyperactive bowel sounds. There is no rebound or guarding. DIAGNOSTIC STUDIES/LABORATORY DATA: Data include a white count of 9.1, hemoglobin of 15.4, C-reactive protein of 29, normal liver panel with an albumin of 3.9. IMPRESSION: A 61-year-old woman presenting with recurrence of small bowel obstruction, now with thickening in the ileum based upon a CAT scan. The thickening of the ileum may be secondary to the obstruction or potentially could be a primary process. Etiologies for a bowel obstruction could certainly be from adhesions due to prior surgery. Intrinsic GI disease such as inflammatory condition such as Crohn's disease, intestinal lymphoma are plausible, but probably less likely. At this point, I agree with conservative therapy. If she does not improve in 24 hours, then I do believe surgical exploration would be prudent. At that point, the small bowel can be assessed. If she does improve and is discharged, then probably an outpatient colonoscopy with ileal intubation would be appropriate and that was discussed with her and she could bring that up with her regular phlebotomy services representative. CC: Dr. Negro; Dr. Jena Ewing* [id number]/[facility] #: [id number] MTDD
[2017-01-08] MEDS: HYDROmorphone* 1 MG/ML 1 ML SYR IV PRN ×2 (02:15→20:27)
[2017-01-08] MEDS: Ondansetron INJ* 2 MG/ML VIAL IV PRN ×2 (02:15→20:25)
[2017-01-08] MEDS: metroNIDAZOLE IV 500 MG/100ML* 500 MG/100 ML BAG IVPB SCH ×3 (06:37→22:02)
[2017-01-08] MEDS: NS 0.9% w/ 40 Meq KCL 1000 ML* 1,000 ML IV SCH ×2 (08:37→18:17)
--- NOTE | 2017-01-08 08:43 | PN ---
Progress Note - Progress Note SOAP: Subjective: Feels much better this morning No nausea and has an appetite Had multiple non-bloody bowel movements last night and is passing flatus Still with some lower abdominal pain and required some narcotic analgesia Objective: Temp Pulse Resp BP Pulse Ox 98.0 F 71 16 109/63 96 01/08/17 07:19 01/08/17 07:19 01/08/17 07:19 01/08/17 07:19 01/08/17 07:19 Intake & Output 01/06/17 01/07/17 01/08/17 01/09/17 06:59 06:59 06:59 06:59 Intake Total 1000 2946 Output Total 2350 300 Balance 1000 596 -300 Weight 195 lb 195 lb Intake: IV Fluids 1000 2531 ABX - FLAGYL 218 NS 1298 Medicated IV 415 Cipro 415 Oral 0 Output: Urine 2350 300 Other: Date of Last Bowel 2100 01/08/17 Movement # Bowel Movements 1 Estimated Stool Amount Medium PEX: Comfortable Lungs are CTA Abd is soft and non-distended. Bowel sounds are present and are normoactive and not high-pitched or tinkling. She has some tenderness in the lower abdomen worse on the right but there is no rebound or peritoneal irritation. Assessment: Terminal ileitis of unknown etiology at this point but possibility of inflammatory bowel disease, infection--appreciate Dr. Miller's opinion and I do not believe that surgery is indicated at this point. She is improved on IV antibiotics. No evidence of mechanical obstruction Plan: Continue IV Cipro and Flagyl Clear liquids Observe for today in hospital-no plans for surgical intervention unless worsens or fails to improve. Recheck labs in the AM
[2017-01-08] MEDS: Pantoprazole IV* 40 MG IV SCH (09:15)
[2017-01-09] MEDS: Ciprofloxacin 400MG IVPREMIX(* 400 MG/200 ML BAG IVPB SCH ×2 (01:32→14:12)
[2017-01-09] MEDS: NS 0.9% w/ 40 Meq KCL 1000 ML* 1,000 ML IV SCH ×2 (04:26→17:13)
[2017-01-09] MEDS: metroNIDAZOLE IV 500 MG/100ML* 500 MG/100 ML BAG IVPB SCH ×3 (05:53→22:06)
[2017-01-09 07:03] LABS: Hematocrit 42 % (35-47); Hemoglobin 13.8 g/dl (12.0-16.0); Mean Corpuscular HGB Conc 33 g/dl (31-36); Mean Corpuscular Hemoglobin 29 pg (27-31); Mean Corpuscular Volume 86 fL (80-97); Mean Platelet Volume 8 um3 (7.4-10.4); Red Blood Count 4.85 10^6/ul (4.0-5.4); Red Cell Distribution Width 14 % (10.5-15); White Blood Count 7.3 10^3/ul (3.5-10.8)
[2017-01-09] MEDS: Pantoprazole IV* 40 MG IV SCH (08:27)
--- NOTE | 2017-01-09 11:08 | PN ---
Progress Note - Progress Note SOAP: Subjective: Has much less lower abdominal pain but had some epigastric pain last night. No nausea or vomiting and she has been tolerating small amounts of clear liquids and has an appetite. Loose BM's with flatus that she describes as "dark but not black" and no blood-- nurses have not seen Objective: Temp Pulse Resp BP Pulse Ox 98.1 F 67 12 122/76 97 01/09/17 08:15 01/09/17 08:15 01/09/17 08:38 01/09/17 08:15 01/09/17 08:15 Intake & Output 01/07/17 01/08/17 01/09/17 01/10/17 06:59 06:59 06:59 06:59 Intake Total 1000 2996 5204 Output Total 2850 4800 Balance 1000 146 404 Weight 195 lb 195 lb Intake: IV Fluids 1000 2531 3614 ABX - FLAGYL 218 NS w/ 40KCL 1298 1730 IVPB 630 ABX - FLAGYL 315 Medicated IV 415 110 Cipro 415 110 Oral 50 850 Output: Urine 2850 4800 Other: Date of Last Bowel 2100 01/08/17 01/09/17 Movement # Bowel Movements 1 1 Estimated Stool Amount Medium Small PEX: Comfortable Lungs are CTA Abd is soft and non-distended. She has some mild lower abdominal pain without rebound or guarding. No upper abdominal pain. Bowel sounds are present and are normoactive. Laboratory Results - last 24 hr 01/09/17 06:33 WBC 7.3 RBC 4.85 Hgb 13.8 Hct 42 MCV 86 MCH 29 MCHC 33 RDW 14 Plt Count 154 MPV 8 Neut % (Auto) 62.1 Lymph % (Auto) 25.5 Weston % (Auto) 8.0 Eos % (Auto) 3.9 Baso % (Auto) 0.5 Absolute Neuts (auto) 4.5 Absolute Lymphs (auto) 1.9 Absolute Monos (auto) 0.6 Absolute Eos (auto) 0.3 Absolute Basos (auto) 0 Absolute Nucleated RBC 0.01 Nucleated RBC % 0.1 Assessment: Abdominal pain and loose BM's with CT showing thickening of distal terminal ileus without obstruction. Possible diagnosis of inflammatory bowel disease, infectious etiology and less likely ischemia. She is slowly improving--remains afebrile with less tenderness on exam and is having loose bowel movements. WBC is normal Her nausea and vomiting has resolved. Plan: At this point I do not feel that there is an urgent indication for surgical intervention as she appears to be improving. Hopefully she will continue to improve with antibiotics and will be able to undergo an outpatient work-up to evaluate for Crohn's, etc. Stool cultures will be checked and stool checked for blood. I do not think she is ready for discharge yet and will continue IV antibiotics for another 24 hours and follow her progress. Liquids as tolerated All of the above discussed with patient and her this morning.
[2017-01-09] MEDS: Ondansetron INJ* 2 MG/ML VIAL IV PRN (15:38)
[2017-01-10] MEDS: Ciprofloxacin 400MG IVPREMIX(* 400 MG/200 ML BAG IVPB SCH (01:22)
[2017-01-10] MEDS: NS 0.9% w/ 40 Meq KCL 1000 ML* 1,000 ML IV SCH (03:26)
[2017-01-10] MEDS: metroNIDAZOLE IV 500 MG/100ML* 500 MG/100 ML BAG IVPB SCH (05:43)
--- NOTE | 2017-01-10 08:39 | PN ---
Progress Note - Progress Note Note: Surgery Ms. Guzman reports she feels much better. She is passing flatus and BM. She is hungry. Vital Signs 01/09/17 01/09/17 01/09/17 11:42 14:59 19:28 Temperature 98.1 F 98.1 F Pulse Rate 71 69 86 Respiratory 12 16 14 Rate Blood Pressure 119/75 115/70 122/67 (mmHg) O2 Sat by Pulse 100 98 99 Oximetry 01/09/17 01/09/17 01/10/17 22:05 23:48 04:01 Temperature 97.9 F 97.7 F Pulse Rate 77 68 Respiratory 14 16 18 Rate Blood Pressure 114/58 115/62 (mmHg) O2 Sat by Pulse 96 97 Oximetry Abd: some BS, soft, non-tender Intake & Output 01/09/17 01/10/17 01/10/17 22:59 06:59 14:59 Intake Total 2567 689 Output Total 900 1100 Balance 1667 -411 Intake: IV Fluids 1262 374 ABX - CIPROFLOXACIN 205 NS w/ 40KCL 1057 374 IVPB 105 315 ABX - CIPROFLOXACIN 205 ABX - FLAGYL 105 110 Oral 1200 0 Output: Urine 900 1100 A/P: Improving with conservative management with abx. Will advance diet, change abx to PO. Can go home if tolerates.
[2017-01-10] MEDS ORDERED: Ciprofloxacin TAB* 500 MG PO SCH (09:00)
[2017-01-10] MEDS ORDERED: metroNIDAZOLE TAB* 250 MG PO SCH (09:00)
[2017-01-10] MEDS: Pantoprazole IV* 40 MG IV SCH (09:13)
[2017-01-10] MEDS: Ondansetron INJ* 2 MG/ML VIAL IV PRN (12:03)
[2017-01-10 12:14] VITALS: BP 133/74
--- NOTE | 2017-01-13 17:17 | DS ---
CC: [facility]; Kaci Rodríguez MD, [facility]; Jena Ewing MD, [facility] in [place] DISCHARGE SUMMARY: DATE OF ADMISSION: 01/07/17 DATE OF DISCHARGE: 01/10/17 PRINCIPAL DIAGNOSIS: Right lower quadrant abdominal pain with inflammation of the ileum. SECONDARY DIAGNOSIS: Gastroesophageal reflux disease. SURGICAL PROCEDURE PERFORMED: None. COMPLICATIONS: None. DISCHARGE DISPOSITION: Home MEDICATIONS: 1. Ciprofloxacin 500 mg twice daily for 2 weeks. 2. Flagyl 500 mg 3 times a day x2 weeks. FOLLOWUP: A followup appointment was to be made with the [facility] primary care provider as we ll as Dr. 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 She was instructed to call or re turn to the emergency room or talk with the surgical service if she develops worsening or recurrent abdominal pain, nausea, vomiting, fever, chills, or severe abdominal pain. HISTORY OF PRESENT ILLNESS: Ms. 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 A CT scan at that time showed a concern for a small bowel obstruction. She returned to the emergency room about 24 hours after discharge with a recurrence of her severe ab dominal pain with nausea without vomiting. She has had some loose bowel movements the evening befor e but nothing since and the pain was described as crampy. HOSPITAL COURSE: The patient was seen in the emergency room and noted to have normal white blood ce ll count. No fever or tachycardia. She had some lower quadrant abdominal tenderness. A repeat CT scan with oral and IV contrast this time showed significant and impressive thickening of the termina l ileum for about the last 15 inches. This was not an obstructive lesion. There is a small amount of free pelvic fluid. There was no extraluminal air, abscess, and the colon appeared to be unremark able. She was status post an appendectomy. In light of this finding, this was clearly not a small bowel obstruction and a decision was made not to proceed with operative intervention at this time due to her exam and the remainder of her workup . She was started on ciprofloxacin and Flagyl and carefully observed over the next [address] Zaeher Miller was obtained and felt that this may be either Crohn's disease or an infectious/inflammatory ileitis and would require further workup as an outpatient. Stool cultures were obtained and were pending at the time of this discharge. Over the next 48-72 hours, the pain resolved and she remained afebrile. Her white count was normal. She started to have multiple loose bowel movements without blood and her diet was advanced as tole rated. She was discharged home with the above followup. [id number]/[facility] #: [id number]
== END 2017-01-10 14:30 | disposition home or self-care (01) | DRG 247 ==
LOC: ED 03:34 → SSU 08:34 → OBSVTOIN 01-08 08:00
PROVIDERS: ADMIT Surgery; ATTEND Surgery
DX: K56.60 Unspecified intestinal obstruction (principal); E66.9 Obesity, unspecified; K52.9 Noninfective gastroenteritis and colitis, unspecified; K21.9 Gastro-esophageal reflux disease without esophagitis; R40.2412 Glasgow coma scale score 13-15, at arrival to emergency department; Z88.0 Allergy status to penicillin; Z82.49 Family history of ischemic heart disease and other diseases of the circulatory system; Z68.34 Body mass index [BMI] 34.0-34.9, adult; Z90.710 Acquired absence of both cervix and uterus
CPT/HCPCS: 36415; 74020; 74177; 80053; 82272; 83605; 83630; 83690; 83735; 85025; 86140; 87045; 87046; 87077; 87899; A9270-GY; G0378; J0744; J1170; J2270; J2405; Q9967